=== PATIENT | male | born 1985 | race Caucasian/White ===

== ENCOUNTER → 2018-01-03 | Outpatient (CLI) | payer BC | LOC: GMAH 17:02 | PROVIDERS: ATTEND Family Medicine | DX: M79.609 Pain in unspecified limb (principal) ==

== ENCOUNTER 2018-06-23 09:49 | Emergency (ER) | payer BC ==
[2018-06-23 10:22] VITALS: TEMP 98.6
--- NOTE | 2018-06-23 10:27 | ED.PDOC ---
History of Present Illness - General Chief Complaint: General Time Seen by Provider: 06/23/18 09:59 Source: patient, family Exam Limitations: no limitations - History of Present Illness Initial Comments: patient comes in today secondary to being referred by the clinic. Patient states he has had hypoglycemic episodes for several years. The lowest with minimal last years in the 60s but his finally convinced him to get checked out. Patient was trying to just make a clinic appointment but they stated that with his symptoms they wanted him seen in the emergency room. Patient currently has no symptoms of hypoglycemia he has no weakness, no drowsiness, no shortness of breath, no altered LOC. Patient also states that he injured his left hip and groin area when it accidentally got hyperextended when he was jumping down at a job site. He's been able to walk on it all week but is still sore. When he told them that it was still sore and "hot". The clinic refused to give him an appointment and told him he needed to be checked out in the emergency room. He has no past medical history. He has no surgical history. He has no known drug allergies. Patient has had a mild cough over the past several days but no fever or chills. He is happy and cheerful and in no acute distress. Timing/Duration: other Severity: mild Improving Factors: eating Worsening Factors: nothing Associated Symptoms: denies symptoms Allergies/Adverse Reactions: Allergies NO KNOWN ALLERGY Allergy (Unverified 06/23/18 10:21) Home Medications: Ambulatory Orders NK 06/23/18 Review of Systems - Review of Systems Constitutional: States: no symptoms reported EENTM: States: no symptoms reported Respiratory: States: cough. Denies: wheezing Cardiology: States: no symptoms reported Gastrointestinal/Abdominal: States: no symptoms reported Genitourinary: States: no symptoms reported Musculoskeletal: States: see HPI Endocrine: States: see HPI Past Medical History (General) - Patient Medical History Hx Stroke: No Hx Congestive Heart Failure: No Hx Diabetes: No - Vaccination History Hx Tetanus, Diphtheria Vaccination: No Hx Influenza Vaccination: No Hx Pneumococcal Vaccination: No - Social History Hx Tobacco Use: No Hx Alcohol Use: No Family Medical History - Family History Father Family History: No Known Living Status: Still Living Physical Exam - Physical Exam General Appearance: Alert, Comfortable, No apparent distress Eye Exam: bilateral normal Ears, Nose, Throat: hearing grossly normal, normal ENT inspection, normal pharynx Neck: non-tender, full range of motion, supple Respiratory: chest non-tender, lungs clear, normal breath sounds, no respiratory distress Cardiovascular/Chest: normal peripheral pulses, regular rate, rhythm, no edema, no gallop, no JVD, no murmur Peripheral Pulses: radial,right: 2+, radial,left: 2+ Gastrointestinal/Abdominal: normal bowel sounds, soft Extremity: normal range of motion, non-tender, normal inspection, other - no erythema, no edema, soreness at the groin without hernia and FROM Neurologic: alert, oriented x 3 Progress - Progress Progress: patient is laughing and talking to us normally. He states he knew he did not have an emergency but was instructed by the clinic to come directly to the emergency room. The patient is not currently hypoglycemic. This is a problem is however several years and his finally talked him into being seen today by a doctor. She was unable to get an appointment for him even of the letter date and they told him he had to come to the emergency room. Exam today is very reassuring and we discussed at length hypoglycemia, risks and appropriate diet changes. Patient did have an injury to his left hip but he is walking on that and there is no signs of deformity and does seem to be improving on its own. Patient also has a mild upper respiratory infection but exam again is reassuring. Overall this is medical clearance and he will follow-up in the clinic. 06/23/18 10:29 Departure - Departure Clinical Impression: Hypoglycemia Disposition: Discharge to Home or Self Care Condition: Good Departure Forms: ED Discharge - Pt. Copy, Patient Portal Self Enrollment Referrals: Huang Brooks MD [Primary Care Provider] - 1-2 Weeks Home Medications: Ambulatory Orders NK 06/23/18 Additional Instructions: follow up in the clinic. No concentrated sugars unless hypoglycemia occurs. Discussed small, more frequent, balanced meals and hypoglycemia precautions.
[2018-06-23 10:51] VITALS: BP 136/90; O2SAT 96
== END 2018-06-23 10:39 | disposition home or self-care (01) ==
LOC: ER 09:49
DX: E16.2 Hypoglycemia, unspecified (principal); R05 Cough; S79.912A Unspecified injury of left hip, initial encounter; X50.9XXA Other and unspecified overexertion or strenuous movements or postures, initial encounter; Y99.0 Civilian activity done for income or pay; Y92.69 Other specified industrial and construction area as the place of occurrence of the external cause

== ENCOUNTER 2018-06-24 23:50 | Emergency (ER) | payer BC ==
--- NOTE | 2018-06-25 00:13 | ED.PDOC ---
History of Present Illness - General Chief Complaint: Blood Pressure Problem Stated Complaint: high blood pressure Time Seen by Provider: 06/25/18 00:05 Source: patient Exam Limitations: no limitations - History of Present Illness Initial Comments: Kleber Torres 32 y/o male came to ER with high blood pressure for the last 3 days systolic 170s;denies headache,chest pains SOB.No chronic medical problem Timing/Duration: other - 3 days Severity: moderate Improving Factors: nothing Worsening Factors: nothing Associated Symptoms: denies symptoms Allergies/Adverse Reactions: Allergies NO KNOWN ALLERGY Allergy (Verified 06/25/18 00:16) Review of Systems - Review of Systems Constitutional: States: no symptoms reported EENTM: States: no symptoms reported Respiratory: States: cough - non productive x 1 month Cardiology: States: no symptoms reported Gastrointestinal/Abdominal: States: no symptoms reported Genitourinary: States: no symptoms reported Musculoskeletal: States: no symptoms reported Skin: States: no symptoms reported Neurological: States: no symptoms reported Past Medical History (General) - Patient Medical History Hx Stroke: No Hx Congestive Heart Failure: No Hx Diabetes: No Hx Other PMH: Yes - kidney stone Surgical History: other - ureteral stent - Vaccination History Hx Tetanus, Diphtheria Vaccination: No Hx Influenza Vaccination: No Hx Pneumococcal Vaccination: No - Social History Hx Tobacco Use: No Hx Alcohol Use: No Family Medical History - Family History Father Family History: No Known Living Status: Still Living Hx Family;Other: kidney stone brother Physical Exam - Physical Exam General Appearance: Alert, Comfortable, No apparent distress Eye Exam: bilateral normal Ears, Nose, Throat: hearing grossly normal, normal ENT inspection, normal pharynx, nasal congestion - [id number] > left Neck: supple, normal inspection Respiratory: lungs clear, normal breath sounds, no respiratory distress Cardiovascular/Chest: normal peripheral pulses, regular rate, rhythm, no murmur Peripheral Pulses: radial,right: 2+, radial,left: 2+ Gastrointestinal/Abdominal: non tender, soft, no organomegaly Back Exam: no CVA tenderness, no vertebral tenderness Extremity: no pedal edema, no calf tenderness Neurologic: alert, oriented x 3 Progress - Progress Progress: 06/25/18 00:57 Vital Signs - 8 hr 06/25/18 00:00 Temperature 96.9 F L Pulse Rate [ 60 monitor] Respiratory 20 Rate Blood Pressure 142/90 [Left Arm] O2 Sat by Pulse 98 Oximetry - Results/Orders Results/Orders: Laboratory Results - last 24 hr 06/25/18 06/25/18 00:13 00:13 WBC 8.2 RBC 5.29 Hgb 16.4 Hct 47.9 MCV 90.4 MCH 31.0 MCHC 34.3 RDW 13.3 Plt Count 225 MPV 9.5 Absolute Neuts (auto) 4.20 Absolute Lymphs (auto) 2.90 Absolute Monos (auto) 0.90 H Absolute Eos (auto) 0.10 Absolute Basos (auto) 0.10 Neutrophils % 51.8 Lymphocytes % 35.6 Monocytes % 10.4 H Eosinophils % 1.5 Basophils % 0.7 Sodium 138 Potassium 3.8 Chloride 103 Carbon Dioxide 23 Anion Gap 15.8 BUN 24 H Creatinine 1.14 BUN/Creatinine Ratio 21.1 H Random Glucose 99 Serum Osmolality 279.8 Calcium 9.4 Total Bilirubin 0.5 AST 24 ALT 26 Alkaline Phosphatase 80 Serum Total Protein 7.0 Albumin 4.2 Globulin 2.8 Albumin/Globulin Ratio 1.5 - EKG/XRAY/CT XRAY: chest - no acute findings Departure - Departure Clinical Impression: Allergic rhinitis due to dust, Temporary high blood pressure Time of Disposition: 01:06 Disposition: Discharge to Home or Self Care Condition: Good Departure Forms: ED Discharge - Pt. Copy, Patient Portal Self Enrollment Instructions: DI for High Blood Pressure, DASH Diet, Controlling Your Blood Pressure Through Lifestyle Diet: other - Need to drink water instead of sweetened iced tea Referrals: Huang Brooks MD [Primary Care Provider] - 1-2 Weeks Additional Instructions: Need to follow up with primary Md in 14 days for recheck;Return to Emergency Room as needed;May take over the counter Zyrtec-10 mg one tablet in am for allergies Need to take blood pressure am/pm then record and show to primary Md in 2 weeks for recheck
[2018-06-25 00:16] VITALS: TEMP 96.9; O2SAT 98
--- NOTE | 2018-06-25 00:37 | RAD ---
EXAM DESCRIPTION: Chest,1 View CLINICAL HISTORY: 32 years Male, cough COMPARISON: None. FINDINGS: No consolidation. No pneumothorax. No significant pleural effusion. Cardiomediastinal silhouette is unremarkable. Osseous structures are unremarkable. IMPRESSION: No acute findings. Electronically signed by: Abrahan Carrasco MD 06/25/2018 12:34 AM CDT
[2018-06-25] MEDS: LISINOPRIL 5 MG TAB PO ONE ×2 (01:05→01:12)
[2018-06-25 01:36] VITALS: BP 124/92
== END 2018-06-25 01:48 | disposition home or self-care (01) ==
LOC: ER 23:50
DX: J30.89 Other allergic rhinitis (principal); R03.0 Elevated blood-pressure reading, without diagnosis of hypertension

== ENCOUNTER → 2018-12-14 | Outpatient (CLI) | payer BC ==
--- NOTE | 2018-12-14 17:27 | MRI ---
EXAM DESCRIPTION: Shoulder,Right CLINICAL HISTORY: 33 years, Male, PAIN IN RIGHT SHOULDER. Limited range of motion lifting raising shoulder. Falling injury two months ago. COMPARISON: Right shoulder radiograph 11/30/2018. TECHNIQUE: MRI of the right shoulder was performed with multiplanar multi sequence imaging without intravenous contrast. FINDINGS: Rotator tendons: Minimal increased interstitial signal/tendinosis of the supraspinatus and infraspinatus tendons. No focal fluid-filled rotator cuff tear is seen. The subscapularis and teres minor tendons are intact. Rotator muscles: No rotator cuff muscle atrophy. Glenoid labrum: Limited evaluation of the labrum is within normal limit. Acromion: The acromion morphology is type one. Moderate right distal clavicle subcortical and intramedullary bone marrow edema/contusion with associated mild edema within the right acromioclavicular joint capsule consistent with mild capsular sprain. No high-grade AC separation. Bone and joints: No full-thickness cartilage defect. Small humeral head subcortical cystic changes. Biceps tendon: Normal course and morphology of the biceps tendon long head within the bicipital groove. The biceps labral anchor appears intact. Soft tissues: No solid or cystic mass is seen. No focal muscle strain or edema. IMPRESSION: 1. Moderate right distal clavicle bony contusion. 2. Mild right acromioclavicular joint capsular sprain. No displacement of the acromioclavicular joint. 3. Intact rotator cuff. Electronically signed by: George Guzman DO 12/14/2018 5:25 PM CDT
== END ==
LOC: MRI 08:39
PROVIDERS: ATTEND Family Medicine
DX: S43.51XA Sprain of right acromioclavicular joint, initial encounter (principal); S40.011A Contusion of right shoulder, initial encounter

== ENCOUNTER → 2019-10-14 | Outpatient (CLI) | payer BC ==
--- NOTE | 2019-10-14 16:08 | RAD ---
EXAM DESCRIPTION: Shoulder,Right 2 or More Views CLINICAL HISTORY: 34 years Male, SHOULDER PAIN RIGHT COMPARISON: None. Findings: Four views/radiographs Location: Right shoulder No acute fracture or dislocation. Minimal acromioclavicular osteoarthritis. Soft tissues are unremarkable. Subacromial space is maintained. Visualized chest is clear. Glenohumeral relationship maintained. IMPRESSION: No evidence of acute process in the right shoulder. Electronically signed by: Timmy Whitman MD 10/14/2019 4:06 PM CDT
== END ==
LOC: RAD 10:21
PROVIDERS: ATTEND Orthopaedic Surgery
DX: M25.511 Pain in right shoulder (principal)